=== PATIENT | male | born 1985 | race Caucasian/White ===

== ENCOUNTER 2019-06-19 19:03 | Emergency (ER) | payer BC, SELFPAY ==
[2019-06-19 19:10] VITALS: BP 121/84; PULSE 119; RESP 18; TEMP 38.4; O2SAT 98
--- NOTE | 2019-06-19 19:34 | ED.URI ---
HPI - URI/Sore Throat General Chief Complaint: Upper Respiratory Infection Stated Complaint: right ear/SOB/chest discomfort/Cough Time Seen by Provider: 06/19/19 19:34 Source: patient and RN notes reviewed Mode of arrival: ambulatory Limitations: no limitations History of Present Illness HPI Narrative: 33-year-old male accompanied by father in law presents with 3-day duration of sore throat, today he has experienced body aches,chest congestion,right ear pain and cough with chills and fever. He is just returning from conference in [facility] and states he knows he has been exposed to Influenza. Patient states that he just took some Nyquil and Tylenol 3 hours prior to arrival in clinic. Patient denies any acute shortness of breath, states that he feels a little short of breath with activity, denies any wheezing or any history of asthma or tobacco abuse.Patient states that his cough is frequent but is nonproductive,does burn when he coughs, SAO2 98% on room air. MD elicited complaint: cough Onset (ago): day(s) Consistency: progressively worsening Severity: severe Pain scale (0-10): 7 Description of mucous: clear Able to tolerate fluids by mouth: Yes Exacerbating factors: swallowing and exertion Relieving factors: nothing Context: sick contacts and recent travel Associated symptoms: fever, chills, rhinorrhea, nasal congestion, sore throat, cough, shortness of breath (exertional) and ear pain Treatments prior to arrival: acetaminophen and other (Nyquil) Related Data Allergies Allergy/AdvReac Type Severity Reaction Status Date / Time No Known Allergies Allergy Verified 06/19/19 19:17 Review of Systems Review of Systems: Narrative: CONSTITUTIONAL:Positive fever, chills, or sweats. EYES: Denies visual changes, redness, or discharge. ENT:Poitive rhinorrhea, congestion, sore throat, right otalgia. CARDIOVASCULAR: Denies chest pain, palpitations, or edema. RESPIRATORY:Positive cough or dyspnea with exertion, states burn when he coughs, is nonproductive. GASTROINTESTINAL: Denies abdominal pain, nausea, vomiting, or diarrhea. GENITOURINARY: Denies dysuria or hematuria. SKIN: Denies rash or itching. MUSCULOSKELETAL: Denies back pain, joint pain, or myalgia. NEUROLOGIC: Denies headache, numbness, or weakness. PSYCHIATRIC: Denies anxiety or depression. All systems reviewed & are unremarkable except as noted in HPI and below PMFSH Past Medical History Medical History (Updated 06/23/19 @ 08:20 by Maricruz Sanchez NP) No significant medical problems Surgical History Surgical History (Updated 06/23/19 @ 08:20 by Maricruz Sanchez NP) History of cholecystectomy Social History Social History (Updated 06/23/19 @ 08:07 by Maricruz Sanchez NP) Smoking status: Never smoker Living arrangements: with family Gender identity (if verbalized by the patient): Male Comments At time of signature, agree with nursing past medical, social history. There is no relevant family history pertinent to the presenting complaint Exam Narrative: Exam Narrative: GENERAL: ill -appearing, well-nourished, and in no acute distress. HEAD: Normocephalic, atraumatic. EYES: PERRLA and EOMI. ENT: Nares red with clear rhinorrhea no epistaxis. Mucous membranes moist.TM's normal with good light reflex, throat red with no exudates or lesions no tonsil enlargement NECK: Supple.no lymphadenopathy CHEST: Clear to auscultation. No respiratory distress.cough with SAO2 98% on room air HEART: Regular rate and rhythm. No murmur heard. Normal peripheral pulses. ABDOMEN: Soft, nontender, nondistended, normal active bowel sounds. EXTREMITIES: Normal range of motion. No edema. SKIN: Warm, dry, no rash. NEURO: No focal deficits. Alert and oriented x3. Course Vital Signs Vital signs: Vital Signs Temperature 38.4 C H 06/19/19 19:10 Pulse Rate 119 H 06/19/19 19:10 Respiratory Rate 18 06/19/19 19:10 Blood Pressure 121/84 06/19/19 19:10 Pulse Oximetry 98
== END 2019-06-19 19:55 | disposition home or self-care (01) ==
PROVIDERS: Emergency Provider Registered Nurse
DX: J10.1 Influenza due to other identified influenza virus with other respiratory manifestations (principal)
CPT/HCPCS: 87081; 87804; 87880; 99203; G0463